=== PATIENT | female | born 1985 | race Caucasian/White ===

== ENCOUNTER → 2019-07-31 | Outpatient (CLI) | payer BC | LOC: MC.RAD 13:00 → EDBD 13:01 → MC.RAD 13:01 | DX: N63.21 Unspecified lump in the left breast, upper outer quadrant (principal) | CPT/HCPCS: G0279 ==

== ENCOUNTER → 2019-08-22 | Outpatient (CLI) | payer BC | LOC: MC.RAD 07:00 | DX: N63.10 Unspecified lump in the right breast, unspecified quadrant (principal) ==

== ENCOUNTER 2021-03-21 06:56 | Inpatient (IN) | payer BC ==
[~2021-03-21] VITALS: Ht 165.1 cm; Wt 71.8 kg
[2021-03-21] VITALS (35 sets, daily range): BP systolic 94–141; BP diastolic 54–82; PULSE 61–94; TEMP 97.5–98.8
[2021-03-21] MEDS ORDERED: PRENATAL TABLET (07:29)
[2021-03-21] MEDS ORDERED: CALCIUM CARBON650 M2 (07:30)
[2021-03-21 08:40] LABS: BASO % 0.2 % (0.0-2.0); EOS # 0.1 (0.0-0.7); EOS % 0.5 % (0-4.0); GRAN # 7.2 (1.4-6.5); GRAN % 72.3 % (42.2-75.2); HEMATOCRIT 35.9 % (37.0-47.0); HEMOGLOBIN 11.7 g/dl (12.5-16.0); LYMPH % 19.7 % (20.0-51.0); MEAN CELL VOLUME 88 fl (80.0-100.0); MEAN CORPUSCULAR HEMOGLOBIN 29 pg (27.0-31.0); MEAN CORPUSCULAR HGB CONC 33 g/dl (33.0-37.0); MONO # 0.7 (0.1-0.6); MONO % 6.9 % (1.7-9.3); PLATELET COUNT 184 K/mm3 (130-400); RED BLOOD COUNT 4.07 M/mm3 (4.10-5.30); REDCELL DISTRIBUTION WIDTH-CV 13.2 % (11.5-14.5)
--- NOTE | 2021-03-21 10:36 | NUR ---
07 PATIENT HERE FOR COMPLAINTS OF BOW BREAKING LAST EVENING AT 7PM. LARGE GUSH OF CLEAR FLUID THEN. AND CONTRACTIONS ARE GETTING MORE INTENSE. EFM ON FHT 125 BABY VERY ACTIVE. CONTRACTIONS 3-5 MIN. SVE BY LORNE JEFF. 0/-3 BLOOD SHOW NOTED. AND AMNIOTRACE POSITIVE. DR LATIF CALLED AND UPDATED.ORDERS TO ADMIT FOR LABOR.
--- NOTE | 2021-03-21 10:41 | NUR ---
0748 DR LATIF AT BEDSIDE TALKING TO PATIENT AND .
--- NOTE | 2021-03-21 11:38 | NUR ---
113 PATIENT READY FOR EPIDURAL. Heidi MOSLEY BOW MAKING MACHINE OPERATOR TO COME FOR PLACEMENT
--- NOTE | 2021-03-21 12:16 | NUR ---
1150 PATIENT SITS UP ON EDGE OF BED FOR EPIDURAL PLACEMENT. Marcell MOSLEY PRODUCT LISTER AT BEDSIDE FOR PLACEMENT. TOLERTES WELL. SEE Marcell MOSLEY NOTES FOR QUESTIONS.
--- NOTE | 2021-03-21 16:57 | NUR ---
1600 COMPLETE. WILL PUSH WITH EACH CONTRACTION. DR VILLARREAL CALLED TO COME FOR DELIVERY NOW
--- NOTE | 2021-03-21 16:57 | NUR ---
1610 DR LATIF HERE FOR DELIVERY. PATIENT PUSHES WITH EACH CONTRATIONS. 1618 BABY BOY DELIVERED AT THIS TIME PER DR LATIF. CORD CLAMPED AND CUT BY AND BABY TO MOMS CHEST. 1620 PLACENTA DELIVERED AT THIS TIME AND PITOCIN STARTED AT 333 PER PROTOCOL. FUNDUS FIRM WITH MASSAGE. 1625 REPAIR DONE AT THIS TIME BY DR LATIF. PATIENT TOLERATES WELL
[2021-03-22] VITALS: BP 102/52; PULSE 68; TEMP 98.6
[2021-03-22 05:01] VITALS: BP 103/71; PULSE 86; TEMP 98.1
[2021-03-22 07:00] VITALS: BP 93/58; PULSE 69; TEMP 98.1
[2021-03-22] MEDS ORDERED: PERCOCET 325 MG1 TA2 PO (10:05)
[2021-03-22] MEDS ORDERED: IBU800 M1 PO (10:05)
[2021-03-22 11:07] VITALS: BP 104/73; PULSE 91; TEMP 99
== END 2021-03-22 17:57 | disposition home or self-care (01) | DRG 807 ==
LOC: LDRO 06:56 → LDR 08:07 → OB 20:59
PROVIDERS: ADMIT Obstetrics & Gynecology
PROC: 10E0XZZ Delivery of Products of Conception, External Approach (ICD-10-PCS; principal; 2021-03-21)
PROC: 0KQM0ZZ Repair Perineum Muscle, Open Approach (ICD-10-PCS; 2021-03-21)
PROC: 10907ZC Drainage of Amniotic Fluid, Therapeutic from Products of Conception, Via Natural or Artificial Opening (ICD-10-PCS; 2021-03-21)
DX: O42.92 Full-term premature rupture of membranes, unspecified as to length of time between rupture and onset of labor (principal); Z37.0 Single live birth; Z3A.40 40 weeks gestation of pregnancy; O70.1 Second degree perineal laceration during delivery
CPT/HCPCS: J2590; J2791; J2795; J7120

== ENCOUNTER → 2021-03-30 | Outpatient (CLI) | payer BC ==
[~2021-03-30] MED LIST: CALCIUM CARBON650 M2; IBU800 M1 PO; PERCOCET 325 MG1 TA2 PO; PRENATAL TABLET
--- NOTE | 2021-03-30 16:26 | NUR ---
Pt, Latosha Gallagher, presents for outpatient consult with 9 day old baby boy, Franklin Gallagher-[place]. She states Franklin makes lots of noises with feeding and she feels sore at the base of the nipple. Franklin was born on [birth year] and weighed 8#1.5oz (3670 gms). Discharge weight on 03/22/21 was 7#14oz First doctor appt on 03/25/21 was 7#3.2oz Weight chec at doctors on 03/27/21 was 7#10.4oz And weight today is 7#13.1oz (3548 gms). Pt reports feeding Franklin on demand, and has feeds as often as 1.5 hours and upto 3 hours. Some feedings he will only nurse 1 side, have a short break and then nurse the other side. She states over the last 3-4 days his voids and stools have increase to meet or exceed the expectation for his age. Stools are yellow and seedy. Franklin has received EBM by bottle about 3 times total, volume is at most 1oz. Pt latches Franklin in the usual fashion using cross cradle. She handles the breast and the baby well, however it does take Franklin several attempts to remain latched and LC assisted with holding his chin down with latching. Once established with latching, Franklin does make a "clacking" noise but does not release the latch. LC notes that Franklin has a high anterior palate and with pressure under the toungue the clacking seems to improve and pt states it feels a little better. After on the left breast Franklin had a gain of 1.4oz (38 gms). On the right breast he had a again of 0.3oz (8gms), for a total of 1.7oz (46 gms). Pt elects to pump the right breast since he did not nurse well there; she collects 20ml which is then fed to Franklin as he has started to root while she was pumping. Because of the high palate, there is little that can be done to change the noise or discomfort with nursing. Because Franklin is having acceptalbe weight gain, no change to feeding plan recommended. POC: continue feeding Franklin ad wilfredo. pumping if he does not nurse well and providing as desired based on his behavior. F/U: TuesdayApril 03 at 1300 with this LC to verify continued weight gain and evaluate nipple discomfort. Questions invited and answered.
== END ==
LOC: LAC 10:20
DX: Z39.1 Encounter for care and examination of lactating mother (principal); Z71.89 Other specified counseling